=== PATIENT | female | born 1965 | race Caucasian/White ===

== ENCOUNTER 2020-10-11 11:47 | Inpatient (IN) | payer OTHER ==
[2020-10-11 16:05] VITALS: BMI 25.8
[2020-10-11] MEDS ORDERED: NALOXONE HCL 0.4 MG/ML VIAL IM PRN (18:52)
[2020-10-11] MEDS ORDERED: METHADONE HCL 10 MG TABLET (FOR DETOX USE ONLY) PO ONE (18:52)
[2020-10-11] MEDS ORDERED: MAG HYDROX/AL HYDROX/SIMETH 30 ML UNIT-DOSE CUP PO PRN (18:52)
[2020-10-11] MEDS ORDERED: MAGNESIUM CITRATE 300 ML BOTTLE PO PRN (18:52)
[2020-10-11] MEDS ORDERED: IBUPROFEN 400 MG TABLET (FP) PO PRN (18:52)
[2020-10-11] MEDS ORDERED: MENTHOL/PHENOL 1 EACH UD MM PRN (18:52)
[2020-10-11] MEDS ORDERED: cloNIDine HCL 0.1 MG TABLET PO PRN (18:52)
[2020-10-11] MEDS ORDERED: ACETAMINOPHEN 325 MG TABLET (FP) PO PRN ×2 (18:52)
[2020-10-11] MEDS ORDERED: MAGNESIUM HYDROX 2400MG/30ML ORAL SUSPENSION 30 ML CUP PO PRN (18:52)
[2020-10-11] MEDS ORDERED: BISMUTH SUBSALICYLATE 524 MG/30 ML UD PO PRN (18:52)
[2020-10-11] MEDS: THIAMINE HCL 100 MG TABLET (FP) PO SCH (22:20)
[2020-10-11] MEDS: MELATONIN 5 MG TABLETS PO SCH (22:20)
[2020-10-11] MEDS: diazePAM 5 MG TABLET PO SCH (22:22)
[2020-10-12] MEDS: diazePAM 5 MG TABLET PO SCH ×4 (05:45→22:27)
[2020-10-12] MEDS: diazePAM 5 MG TABLET PO PRN ×2 (09:04→13:56)
[2020-10-12] MEDS ORDERED: METHADONE HCL 10 MG TABLET (FOR DETOX USE ONLY) ONE (09:54)
[2020-10-12] MEDS ORDERED: METHADONE HCL 5 MG TABLET (FOR DETOX USE ONLY) ONE (09:54)
[2020-10-12] MEDS ORDERED: METHADONE (DETOX) 20 MG, METHADONE (DETOX) 5 MG PO ONE (10:00)
[2020-10-12] MEDS: PRENATAL VITAMINS W/ FOLIC ACID TABLET (FP) PO SCH (10:06)
[2020-10-12 11:43] LABS: HEMATOCRIT 36.9 % (32.4-45.2); HEMOGLOBIN 13.1 GM/dL (10.7-15.3); MCH 33.4 pg (25.7-33.7); MCHC 35.4 g/dl (32.0-36.0); MEAN CELL VOLUME 94.4 fl (80-96); MEAN PLT VOLUME 8.8 fl (7.5-11.1); PLATELET COUNT 85 K/MM3 (134-434); RBC 3.91 M/mm3 (3.60-5.2)
[2020-10-12 11:54] LABS: CALCIUM 8.3 mg/dL (8.5-10.1); WHITE BLOOD COUNT 1.8 K/mm3 (4.0-10.0)
[2020-10-12 11:55] LABS: ALBUMIN 3.2 g/dl (3.4-5.0); BLOOD UREA NITROGEN 9.8 mg/dL (7-18)
[2020-10-12 11:57] LABS: CREATININE 0.5 mg/dL (0.55-1.3)
[2020-10-12 11:59] LABS: TOT PROT 7.8 g/dl (6.4-8.2)
[2020-10-12] MEDS ORDERED: FLU VACCINE (FLULAVAL) PF 60 MCG/0.5 ML SYRINGE 2020-2021 IM ONE (12:00)
[2020-10-12] MEDS ORDERED: PNEUMOC 13-VAL CONJ-DIP CRM/PF 0.5 ML DISP.SYRIN IM ONE (12:00)
[2020-10-12] MEDS ORDERED: POTASSIUM CHLORIDE TABS 20 MEQ TABLET.ER (FP) PO ONE (18:45)
[2020-10-12] MEDS: MELATONIN 5 MG TABLETS PO SCH (22:27)
[2020-10-12] MEDS: THIAMINE HCL 100 MG TABLET (FP) PO SCH (22:28)
[2020-10-13] MEDS: diazePAM 5 MG TABLET PO SCH ×3 (06:18→23:04)
[2020-10-13] MEDS ORDERED: METHADONE HCL 10 MG TABLET (FOR DETOX USE ONLY) PO ONE (10:00)
[2020-10-13] MEDS: PRENATAL VITAMINS W/ FOLIC ACID TABLET (FP) PO SCH (10:06)
[2020-10-13] MEDS ORDERED: LACTULOSE 20 GM/30 ML UDC (FOR ORAL USE ONLY) PO PRN (10:15)
[2020-10-13] MEDS: diazePAM 5 MG TABLET PO PRN ×2 (10:19→17:47)
[2020-10-13 10:40] LABS: BASO % 0.5 % (0-2.0); EOS % 2.7 % (0-4.5); HEMATOCRIT 36.4 % (32.4-45.2); HEMOGLOBIN 12.7 GM/dL (10.7-15.3); LYMPH % 30.7 % (8-40); MCH 33.3 pg (25.7-33.7); MCHC 35.1 g/dl (32.0-36.0); MEAN PLT VOLUME 8.8 fl (7.5-11.1); MONO % 11.9 % (3.8-10.2); NEUT % 54.2 % (42.8-82.8); PLATELET COUNT 87 K/MM3 (134-434); RBC 3.83 M/mm3 (3.60-5.2); WHITE BLOOD COUNT 2.2 K/mm3 (4.0-10.0)
[2020-10-13 10:55] LABS: ALBUMIN 3.1 g/dl (3.4-5.0); BLOOD UREA NITROGEN 11.3 mg/dL (7-18)
[2020-10-13 10:58] LABS: BILIRUBIN,TOTAL 0.8 mg/dL (0.2-1); CREATININE 0.5 mg/dL (0.55-1.3)
[2020-10-13 11:04] LABS: CALCIUM 8.3 mg/dL (8.5-10.1)
[2020-10-13] MEDS: MELATONIN 5 MG TABLETS PO SCH (23:03)
[2020-10-13] MEDS: THIAMINE HCL 100 MG TABLET (FP) PO SCH (23:03)
[2020-10-13] MEDS: SUVOREXANT 10 MG TABLET PO PRN (23:06)
[2020-10-13] MEDS: METHOCARBAMOL 500 MG TABLET PO PRN (23:06)
[2020-10-14] MEDS: diazePAM 5 MG TABLET PO SCH ×2 (05:45→17:20)
[2020-10-14] MEDS ORDERED: METHADONE HCL 5 MG TABLET (FOR DETOX USE ONLY) ONE (09:05)
[2020-10-14] MEDS ORDERED: METHADONE HCL 10 MG TABLET (FOR DETOX USE ONLY) ONE (09:05)
[2020-10-14] MEDS: PRENATAL VITAMINS W/ FOLIC ACID TABLET (FP) PO SCH (09:49)
[2020-10-14] MEDS: diazePAM 5 MG TABLET PO PRN (09:50)
[2020-10-14] MEDS ORDERED: METHADONE (DETOX) 10 MG, METHADONE (DETOX) 5 MG PO ONE (10:00)
[2020-10-14] MEDS: METHOCARBAMOL 500 MG TABLET PO PRN (17:21)
[2020-10-14] MEDS: THIAMINE HCL 100 MG TABLET (FP) PO SCH (22:04)
[2020-10-14] MEDS: SUVOREXANT 10 MG TABLET PO PRN (22:04)
[2020-10-14] MEDS: MELATONIN 5 MG TABLETS PO SCH (22:05)
[2020-10-15] MEDS ORDERED: diazePAM 5 MG TABLET PO ONE (06:00)
[2020-10-15] MEDS: PRENATAL VITAMINS W/ FOLIC ACID TABLET (FP) PO SCH (09:43)
[2020-10-15] MEDS: METHOCARBAMOL 500 MG TABLET PO PRN ×2 (09:44→17:48)
[2020-10-15] MEDS ORDERED: METHADONE HCL 10 MG TABLET (FOR DETOX USE ONLY) PO ONE (10:00)
[2020-10-15] MEDS: THIAMINE HCL 100 MG TABLET (FP) PO SCH (21:59)
[2020-10-15] MEDS: MELATONIN 5 MG TABLETS PO SCH (21:59)
[2020-10-15] MEDS ORDERED: SUVOREXANT 10 MG TABLET PO PRN (22:00)
[2020-10-15] MEDS: SUVOREXANT 10 MG TABLET PO PRN (22:01)
[2020-10-16] MEDS ORDERED: METHADONE HCL 5 MG TABLET (FOR DETOX USE ONLY) PO ONE (06:00)
[2020-10-16 09:10] VITALS: BP 111/64; PULSE 78; TEMP 96.9
[2020-10-16] MEDS: PRENATAL VITAMINS W/ FOLIC ACID TABLET (FP) PO SCH (10:45)
== END 2020-10-16 09:52 | disposition home or self-care (01) | DRG 773 ==
LOC: YASAS 11:47 → Y3N 19:14
PROVIDERS: ADMIT Allergy & Immunology; ATTEND Allergy & Immunology
PROC: HZ2ZZZZ Detoxification Services for Substance Abuse Treatment (ICD-10-PCS; principal; 2020-10-11)
DX: F11.23 Opioid dependence with withdrawal (principal); F13.20 Sedative, hypnotic or anxiolytic dependence, uncomplicated; F19.280 Other psychoactive substance dependence with psychoactive substance-induced anxiety disorder; F19.282 Other psychoactive substance dependence with psychoactive substance-induced sleep disorder; F19.24 Other psychoactive substance dependence with psychoactive substance-induced mood disorder; Z21 Asymptomatic human immunodeficiency virus [HIV] infection status; E87.6 Hypokalemia; E83.51 Hypocalcemia; D69.6 Thrombocytopenia, unspecified; D72.819 Decreased white blood cell count, unspecified; R60.0 Localized edema; J45.909 Unspecified asthma, uncomplicated; K70.30 Alcoholic cirrhosis of liver without ascites; B18.2 Chronic viral hepatitis C; M54.5 Low back pain; G89.29 Other chronic pain; R45.89 Other symptoms and signs involving emotional state; Z62.810 Personal history of physical and sexual abuse in childhood; Z88.0 Allergy status to penicillin; Z91.5 Personal history of self-harm
CPT/HCPCS: 36415; 80053; 85025; 85027; 86780; 90670; 93005; 93010; C9803; G0008; G0009; Q2036; U0003